=== PATIENT | female | born 1995 | race Caucasian/White ===

== ENCOUNTER 2021-06-24 17:40 | Emergency (ER) | payer BC ==
[2021-06-24] MEDS ORDERED: Sodium Chloride 0.9% 1000 ML 1,000 ML IV STA (18:32)
--- NOTE | 2021-06-24 18:42 | ERPHSYRPT ---
- History of Present Illness Time Seen by Provider: 06/24/21 17:55 Source: patient Exam Limitations: no limitations Patient Subjective Stated Complaint: pt here for dizziness for over 2 months, off and on,she states she feels unsteady on feet, she has testing done 2 weeks ago and was negative,denies any injury Triage Nursing Assessment: pt alert, resp easy, walked in, gait steady, skin w/d/p, face mask in place, no edema noted Physician History: Patient is a 26-year-old female presents to emergency department for evaluation of ongoing dizziness. Patient states she developed dizziness approximately 2 months ago. Patient was seen by nurse practitioner at an outside hospital. Patient had blood work and a Holter monitor placed to further assess for underlying causes of the dizziness. Per patient her blood work was unremarkable. The Holter monitor testing was unremarkable as well. Patient dizziness initially occurred just with sit to stand. She had orthostatics tested and states that they were negative. Patient is concerned because the dizziness is now worse. Patient is now experiencing dizziness when she walks. Patient was at work today and felt as though she was going to pass out. However there is no syncopal episode. Patient occasionally experiences posterior/occipital headaches. Patient experiences bouts of nausea. Patient was nauseous 2 days ago for the entire day. Patient also admits to intermittent sensations of left upper extremity tingling and weakness. Patient states she feels unsteady on her feet occasionally this is a new issue. Patient concerned that her symptoms are progressive. She is otherwise healthy. Patient is a non- smoker however she has a 10-year history of smoking. Patient has history of anxiety. Patient takes hydroxyzine as needed for anxiety. Patient is otherwise healthy. She voices no other complaints concerns at this time. Timing/Duration: other (Progressive dizziness for 2 months) Severity: moderate Modifying Factors: Improves With: other (Sit to stand transitions tend to trigger her dizziness.). Worsens With: nothing Associated Symptoms: nausea, other (Patient admits to near syncopal episodes), No cough, No chills Allergies/Adverse Reactions: No Known Drug Allergies Allergy (Unverified 06/24/21 17:57) Home Medications: hydrOXYzine HCL [Hydroxyzine HCl] 10 mg PO DAILY 06/24/21 [History] Hx Tetanus, Diphtheria Vaccination/Date Given: No Hx Influenza Vaccination/Date Given: No Hx Pneumococcal Vaccination/Date Given: No Immunizations Up to Date: Yes Travel Risk - International Travel Have you traveled outside of the country in past 3 weeks: No - Coronavirus Screening Are you exhibiting any of the following symptoms?: No Close contact with a COVID-19 positive Pt in past 14-21 Days: No - Vaccine Status Have you recieved a Covid-19 vaccination: No - Review of Systems Constitutional: No Symptoms, No Fever, No Chills Eyes: No Symptoms Ears, Nose, & Throat: No Symptoms Respiratory: No Symptoms, No Cough, No Dyspnea Cardiac: No Symptoms, No Chest Pain, No Edema, No Syncope Abdominal/Gastrointestinal: No Symptoms, No Abdominal Pain, No Nausea, No Vomiting, No Diarrhea Genitourinary Symptoms: No Symptoms, No Dysuria Musculoskeletal: No Symptoms, No Back Pain, No Neck Pain Skin: No Symptoms, No Rash Neurological: No Symptoms, No Dizziness, No Focal Weakness, No Sensory Changes Psychological: No Symptoms Endocrine: No Symptoms Hematologic/Lymphatic: No Symptoms Immunological/Allergic: No Symptoms All Other Systems: Reviewed and Negative - Past Medical History Pertinent Past Medical History: No - Past Surgical History Past Surgical History: Yes - Social History Smoking Status: Former smoker Exposure to second hand smoke: No Drug Use: none Patient Lives Alone: No - Female History Hx Last Menstrual Period: last week Hx Now: No - Nursing Vital Signs Nursing Vital Signs: Initial Vital Signs Temperature 98.6 F 06/24/21 17:49 Pulse Rate 76 06/24/21 17:49 Respiratory Rate 18 06/24/21 17:49 Blood Pressure 116/70 06/24/21 17:49 O2 Sat by Pulse Oximetry 100 06/24/21 17:49 Pain Scale Pain Intensity 0 - Physical Exam General Appearance: no apparent distress, alert Eye Exam: PERRL/EOMI, eyes nml inspection Ears, Nose, Throat Exam: normal ENT inspection, TMs normal, pharynx normal, moist mucous membranes Neck Exam: normal inspection, non-tender, supple, full range of motion Respiratory Exam: normal breath sounds, lungs clear, airway intact, No respiratory distress Cardiovascular Exam: regular rate/rhythm, normal heart sounds, normal peripheral pulses Gastrointestinal/Abdomen Exam: soft, normal bowel sounds, No tenderness, No mass Back Exam: normal inspection, normal range of motion, No CVA tenderness, No vertebral tenderness Extremity Exam: normal inspection, normal range of motion, pelvis stable Neurologic Exam: alert, oriented x 3, cooperative, art instructor II-XII nml as tested, normal mood/affect, nml cerebellar function, nml station & gait, sensation nml, No motor deficits Skin Exam: normal color, warm, dry, No rash Lymphatic Exam: No adenopathy SpO2 Interpretation: normal SpO2: 100 O2 Delivery: Room Air - Course Nursing assessment & vital signs reviewed: Yes EKG Interpreted by Me: RATE (78), Sinus Rhythm, NORMAL AXIS, NORMAL INTERVALS - CT Exams Head CT Interpretation: Tele-radiologist Report (No comps. Normal head) Ordered Tests: Active Orders 24 hr Category Date Time Status Diamond Powder Technician STAT Care 06/24/21 18:33 Active EKG-ER Only STAT Care 06/24/21 18:32 Active IV Insertion STAT Care 06/24/21 18:32 Active HEAD WITHOUT CONTRAST [CT] Stat Exams 06/24/21 18:33 Taken CBC W DIFF Stat Lab 06/24/21 18:45 Completed CMP Stat Lab 06/24/21 18:45 Completed ETHYL ALCOHOL Stat Lab 06/24/21 18:45 Completed HCG,QUALITATIVE URINE Stat Lab 06/24/21 18:42 Completed MAGNESIUM Stat Lab 06/24/21 18:45 Completed TROPONIN Q3H Lab 06/24/21 18:45 Completed TROPONIN Q3H Lab 06/24/21 21:45 Ordered TROPONIN Q3H Lab 06/25/21 00:45 Ordered TROPONIN Q3H Lab 06/25/21 03:45 Ordered TROPONIN Q3H Lab 06/25/21 06:45 Ordered TSH [TSH, 3RD Generation] Stat Lab 06/24/21 18:45 Completed Urine Triage Profile Stat Lab 06/24/21 18:42 Completed Medication Summary Discontinued Medications Generic Name Dose Route Start Last Admin Trade Name Freq PRN Reason Stop Dose Admin Sodium Chloride 1,000 mls @ 999 mls/hr 06/24/21 18:32 06/24/21 19:49 Sodium Chloride 0.9% 1000 Ml IV 06/24/21 19:32 Infused .Q1H1M STA Infusion Sodium Chloride Confirm 06/24/21 18:43 Sodium Chloride 0.9% 1000 Ml Administered 06/24/21 18:44 Dose 1,000 mls @ ud .ROUTE .[facility] Lab/Rad Data: Laboratory Result Diagrams 06/24/21 18:45 06/24/21 18:45 Laboratory Results 06/24/21 06/24/21 06/24/21 Range/Units 18:45 18:45 18:45 WBC (4.0-10.5) K/mm3 RBC (4.1-5.4) M/mm3 Hgb (12.0-16.0) gm/dl Hct (35-47) % MCV (78-100) fl MCH (26-32) pg MCHC (32-36) g/dl RDW (11.5-14.0) % Plt Count (150-450) K/mm3 MPV (7.5-11.0) fl Gran % (36.0-66.0) % Eos # (Auto) (0-0.5) Absolute Lymphs (auto) (1.0-4.6) Absolute Monos (auto) (0.0-1.3) Lymphocytes % (24.0-44.0) % Monocytes % (0.0-12.0) % Eosinophils % (0.00-5.0) % Basophils % (0.0-0.4) % Absolute Granulocytes (1.4-6.9) Basophils # (0-0.4) Sodium 139 (137-145) mmol/L Potassium 3.7 (3.5-5.1) mmol/L Chloride 104 (98-107) mmol/L Carbon Dioxide 27 (22-30) mmol/L Anion Gap 12.0 (5-15) MEQ/L BUN 11 (7-17) mg/dL Creatinine 0.60 (0.52-1.04) mg/dL Estimated GFR > 60.0 ML/MIN Glucose 79 (74-106) mg/dL Calcium 9.7 (8.4-10.2) mg/dL Magnesium 1.9 (1.6-2.3) mg/dL Total Bilirubin 0.40 (0.2-1.3) mg/dL AST 22 (14-36) U/L ALT 16 (0-35) U/L Alkaline Phosphatase 53 (38-126) U/L Troponin I < 0.012 (0.000-0.034) ng/mL Serum Total Protein 7.0 (6.3-8.2) g/dL Albumin 4.3 (3.5-5.0) g/dL TSH 3rd Generation 1.450 (0.47-4.68) mIU/L Urinalys Dipstick Clnc Urine Color (YELLOW) Urine Appearance (CLEAR) Urine pH (5-6) Ur Specific [place] (1.005-1.025) POC Urine Protein Conf (Negative) Urine Ketones (NEGATIVE) Urine Nitrite (NEGATIVE) Urine Bilirubin (NEGATIVE) Urine Urobilinogen (0-1) mg/dL Urine Leukocytes (NEGATIVE) Urine WBC (Auto) (0-5) /HPF Urine RBC (Auto) (0-2) /HPF U Epithel Cells (Auto) (FEW) /HPF Urine Bacteria (Auto) (NEGATIVE) /HPF Urine RBC (0-5) Ladarius/ul Urine Mucus (Auto) (NEGATIVE) /HPF Ur Culture Indicated? Urine Glucose (NEGATIVE) mg/dL Urine HCG, Qual (Negative) Urine Opiates Level (NEGATIVE) Ur Methadone (NEGATIVE) Urine Barbiturates (NEGATIVE) Ur Phencyclidine (PCP) (NEGATIVE) Urine Amphetamine (NEGATIVE) U Benzodiazepine Level (NEGATIVE) Urine Cocaine (NEGATIVE) Urine Marijuana (THC) (NEGATIVE) Ethyl Alcohol < 10 (0-10) mg/dL 06/24/21 06/24/21 06/24/21 Range/Units 18:45 18:42 18:42 WBC 10.7 H (4.0-10.5) K/mm3 RBC 4.40 (4.1-5.4) M/mm3 Hgb 13.2 (12.0-16.0) gm/dl Hct 39.3 (35-47) % MCV 89.3 (78-100) fl MCH 30.0 (26-32) pg MCHC 33.6 (32-36) g/dl RDW 12.9 (11.5-14.0) % Plt Count 332 (150-450) K/mm3 MPV 9.4 (7.5-11.0) fl Gran % 75.4 H (36.0-66.0) % Eos # (Auto) 0.14 (0-0.5) Absolute Lymphs (auto) 1.91 (1.0-4.6) Absolute Monos (auto) 0.56 (0.0-1.3) Lymphocytes % 17.9 L (24.0-44.0) % Monocytes % 5.2 (0.0-12.0) % Eosinophils % 1.3 (0.00-5.0) % Basophils % 0.2 (0.0-0.4) % Absolute Granulocytes 8.05 H (1.4-6.9) Basophils # 0.02 (0-0.4) Sodium (137-145) mmol/L Potassium (3.5-5.1) mmol/L Chloride (98-107) mmol/L Carbon Dioxide (22-30) mmol/L Anion Gap (5-15) MEQ/L BUN (7-17) mg/dL Creatinine (0.52-1.04) mg/dL Estimated GFR ML/MIN Glucose (74-106) mg/dL Calcium (8.4-10.2) mg/dL Magnesium (1.6-2.3) mg/dL Total Bilirubin (0.2-1.3) mg/dL AST (14-36) U/L ALT (0-35) U/L Alkaline Phosphatase (38-126) U/L Troponin I (0.000-0.034) ng/mL Serum Total Protein (6.3-8.2) g/dL Albumin (3.5-5.0) g/dL TSH 3rd Generation (0.47-4.68) mIU/L Urinalys Dipstick Clnc Urine Color (YELLOW) Urine Appearance (CLEAR) Urine pH (5-6) Ur Specific [place] (1.005-1.025) POC Urine Protein Conf (Negative) Urine Ketones (NEGATIVE) Urine Nitrite (NEGATIVE) Urine Bilirubin (NEGATIVE) Urine Urobilinogen (0-1) mg/dL Urine Leukocytes (NEGATIVE) Urine WBC (Auto) (0-5) /HPF Urine RBC (Auto) (0-2) /HPF U Epithel Cells (Auto) (FEW) /HPF Urine Bacteria (Auto) (NEGATIVE) /HPF Urine RBC (0-5) Ladarius/ul Urine Mucus (Auto) (NEGATIVE) /HPF Ur Culture Indicated? Urine Glucose (NEGATIVE) mg/dL Urine HCG, Qual NEGATIVE (Negative) Urine Opiates Level NEGATIVE (NEGATIVE) Ur Methadone NEGATIVE (NEGATIVE) Urine Barbiturates NEGATIVE (NEGATIVE) Ur Phencyclidine (PCP) NEGATIVE (NEGATIVE) Urine Amphetamine NEGATIVE (NEGATIVE) U Benzodiazepine Level NEGATIVE (NEGATIVE) Urine Cocaine NEGATIVE (NEGATIVE) Urine Marijuana (THC) NEGATIVE (NEGATIVE) Ethyl Alcohol (0-10) mg/dL 06/24/21 Range/Units 18:33 WBC (4.0-10.5) K/mm3 RBC (4.1-5.4) M/mm3 Hgb (12.0-16.0) gm/dl Hct (35-47) % MCV (78-100) fl MCH (26-32) pg MCHC (32-36) g/dl RDW (11.5-14.0) % Plt Count (150-450) K/mm3 MPV (7.5-11.0) fl Gran % (36.0-66.0) % Eos # (Auto) (0-0.5) Absolute Lymphs (auto) (1.0-4.6) Absolute Monos (auto) (0.0-1.3) Lymphocytes % (24.0-44.0) % Monocytes % (0.0-12.0) % Eosinophils % (0.00-5.0) % Basophils % (0.0-0.4) % Absolute Granulocytes (1.4-6.9) Basophils # (0-0.4) Sodium (137-145) mmol/L Potassium (3.5-5.1) mmol/L Chloride (98-107) mmol/L Carbon Dioxide (22-30) mmol/L Anion Gap (5-15) MEQ/L BUN (7-17) mg/dL Creatinine (0.52-1.04) mg/dL Estimated GFR ML/MIN Glucose (74-106) mg/dL Calcium (8.4-10.2) mg/dL Magnesium (1.6-2.3) mg/dL Total Bilirubin (0.2-1.3) mg/dL AST (14-36) U/L ALT (0-35) U/L Alkaline Phosphatase (38-126) U/L Troponin I (0.000-0.034) ng/mL Serum Total Protein (6.3-8.2) g/dL Albumin (3.5-5.0) g/dL TSH 3rd Generation (0.47-4.68) mIU/L Urinalys Dipstick Clnc MAIN LAB Urine Color YELLOW (YELLOW) Urine Appearance CLEAR (CLEAR) Urine pH 5.5 (5-6) Ur Specific [place] 1.025 (1.005-1.025) POC Urine Protein Conf NEGATIVE (Negative) Urine Ketones NEGATIVE (NEGATIVE) Urine Nitrite NEGATIVE (NEGATIVE) Urine Bilirubin NEGATIVE (NEGATIVE) Urine Urobilinogen 0.2 (0-1) mg/dL Urine Leukocytes NEGATIVE (NEGATIVE) Urine WBC (Auto) NONE (0-5) /HPF Urine RBC (Auto) NONE (0-2) /HPF U Epithel Cells (Auto) FEW (FEW) /HPF Urine Bacteria (Auto) NONE (NEGATIVE) /HPF Urine RBC NEGATIVE (0-5) Lad[place]/ul Urine Mucus (Auto) SLIGHT (NEGATIVE) /HPF Ur Culture Indicated? NO Urine Glucose NEGATIVE (NEGATIVE) mg/dL Urine HCG, Qual (Negative) Urine Opiates Level (NEGATIVE) Ur Methadone (NEGATIVE) Urine Barbiturates (NEGATIVE) Ur Phencyclidine (PCP) (NEGATIVE) Urine Amphetamine (NEGATIVE) U Benzodiazepine Level (NEGATIVE) Urine Cocaine (NEGATIVE) Urine Marijuana (THC) (NEGATIVE) Ethyl Alcohol (0-10) mg/dL - Progress Progress: improved Progress Note: Due to the progressive nature of patient's symptoms worsening dizziness and today with a near syncopal episode telemetry neuro consult was obtained. Prelim inary work-up from our emergency department essentially nonremarkable. Neurologist recommends admission for MRI of the brain with and without contrast as well as MRA of the head. Neurologist also recommends a JOSE with bubble study and a tilt table orthostatic test. Patient was advised of the recommendations and declined. Patient has a child at home that requires her attention. Patient will leave AGAINST MEDICAL ADVICE. Patient states she will obtain the recommended work-up as an outpatient. Patient is of sound mind. Patient is appropriate to make informed and independent medical decisions. Patient understands that leaving AGAINST MEDICAL ADVICE can result in delayed diagnosis, increased risk of morbidity, mortality, short and long-term disability including . In spite of these risks, patient has decided to leave AGAINST MEDICAL ADVICE. Patient understands that he/she may return to our ED at any point if he or she reconsiders. Patient agrees to follow-up with his or her primary care doctor within 48 hours for reevaluation. Patient voices no other complaints or concerns at this time. We will release patient AGAINST MEDICAL ADVICE per their request. 06/24/21 21:34 Portions of this note were created with voice recognition technology. There may be grammatical, spelling, punctuation or sound alike errors Counseled pt/family regarding: lab results, diagnosis, need for follow-up, rad results - Departure Departure Disposition: DAVID Clinical Impression: Dizziness, Near syncope, Paresthesia Condition: Stable Critical Care Time: No Referrals: GIRISH ACKERMAN, CRYSTALLIZER OPERATOR [Primary Care Provider] - Follow up/PCP as directed Additional Instructions: Discharge/Care Plan MANDO HUI was seen on 06/24/21 in the Emergency Room. The patient was counseled regarding Diagnosis,Lab results, Imaging studies, need for follow up and when to return to the Emergency Room. Prescriptions given: Discharge Note I have spoken with the patient and/or caregivers. I have explained the patient's condition, diagnosis and treatment plan based on the information available to me at this time. I have answered the patient's and/or caregiver's questions and addressed any concerns. The patient and/or caregivers have as good understanding of the patient's diagnosis, condition and treatment plan as can be expected at this point. The vital signs have been stable. The patient's condition is stable and appropriate for discharge from the emergency department. The patient will pursue further outpatient evaluation with the primary care physician or other designated or consulting physician as outlined in the discharge instructions. The patient and/or caregivers are agreeable to this plan of care and follow-up instructions have been explained in detail. The patient and/or caregivers have received these instruction. The patient/and or caregivers are aware that any significant change in condition or worsening of symptoms should prompt an immediate return to this or the closest emergency department or call 911.
[2021-06-24] MEDS ORDERED: Sodium Chloride 0.9% 1000 ML 1,000 ML ONE (18:43)
[2021-06-24 18:44] LABS: Appearance CLEAR (CLEAR); Bilirubin NEGATIVE (NEGATIVE); Glucose NEGATIVE (NEGATIVE); Ketones NEGATIVE (NEGATIVE); Specific Gravity 1.025 (1.005-1.025)
[2021-06-24 18:45] LABS: Dipstick done @ ? MAIN LAB; Nitrite NEGATIVE (NEGATIVE); Ph 5.5 (5-6); Protein,Urine Dip NEGATIVE (Negative); RBC NEGATIVE Ery/ul (0-5); Urobilinogen 0.2 mg/dL (0-1)
[2021-06-24 18:47] LABS: Epithelial Cells FEW /HPF (FEW); Mucus SLIGHT /HPF (NEGATIVE)
[2021-06-24 18:54] LABS: Absolute Neutrophil Ct (ANC) 8.05 (1.4-6.9); Basophil (Absolute #) 0.02 (0-0.4); Eosinophil % 1.3 % (0.00-5.0); Eosinophil (Absolute #) 0.14 (0-0.5); Hematocrit 39.3 % (35-47); Hemoglobin 13.2 gm/dl (12.0-16.0); Lymphocyte (Absolute #) 1.91 (1.0-4.6); Lymphocytes % 17.9 % (24.0-44.0); Mean Cell Volume 89.3 fl (78-100); Mean Corpuscular Hgb Concent. 33.6 g/dl (32-36); Mean Platelet Volume 9.4 fl (7.5-11.0); Monocyte (Absolute #) 0.56 (0.0-1.3); Monocytes % 5.2 % (0.0-12.0); Neutrophil % 75.4 % (36.0-66.0); Platelet Count 332 K/mm3 (150-450); Red Cell Distribution Width 12.9 % (11.5-14.0); White Blood Count 10.7 K/mm3 (4.0-10.5)
[2021-06-24 19:06] LABS: Amphetamine,Urine NEGATIVE (NEGATIVE); Barbiturate,Urine NEGATIVE (NEGATIVE); Benzodiazepine,Urine NEGATIVE (NEGATIVE); Cocaine,Urine NEGATIVE (NEGATIVE); Methadone,Urine NEGATIVE (NEGATIVE); Opiate,Urine NEGATIVE (NEGATIVE); PCP,Urine NEGATIVE (NEGATIVE); THC,Urine NEGATIVE (NEGATIVE)
[2021-06-24 19:13] LABS: ALBUMIN 4.3 g/dL (3.5-5.0); ALKALINE PHOSPHATASE 53 U/L (38-126); BLOOD UREA NITROGEN 11 mg/dL (7-17); CHLORIDE 104 mmol/L (98-107); Calcium 9.7 mg/dL (8.4-10.2); Carbon Dioxide 27 mmol/L (22-30); EST GLOMERULAR FILTRATION RATE > 60.0 ML/MIN; ETHYL ALCOHOL < 10 mg/dL (0-10); Glucose 79 mg/dL (74-106); MAGNESIUM 1.9 mg/dL (1.6-2.3); Potassium 3.7 mmol/L (3.5-5.1); SGOT/AST 22 U/L (14-36); SGPT/ALT 16 U/L (0-35); SODIUM 139 mmol/L (137-145)
[2021-06-24 21:13] VITALS: BP 104/74; PULSE 90
[2021-06-24 21:36] VITALS: O2SAT 100
--- NOTE | 2021-06-25 08:44 | XRAY ---
Indication: Headache and dizziness. No known injury. Mass. Multiple contiguous axial images obtained through the head without contrast. Comparison: None Normal appearing brain parenchyma, ventricles, and bony calvarium. Visualized paranasal sinuses and mastoid air cells are clear. Impression: Normal CT head without contrast exam.
== END 2021-06-24 21:49 | disposition left against medical advice (07) ==
LOC: ED 17:40
DX: R42 Dizziness and giddiness (principal); R55 Syncope and collapse; R20.2 Paresthesia of skin; R11.0 Nausea; R51.9 Headache, unspecified; Z79.899 Other long term (current) drug therapy
CPT/HCPCS: 36000; 36415; 70450; 80053; 80307; 81015; 83735; 84443; 84484; 84703; 85025; 93005; 93041; 99284; Q3014; G0480

== ENCOUNTER 2022-09-12 11:53 | Emergency (ER) | payer BC ==
--- NOTE | 2022-09-12 11:55 | ERPHSYRPT ---
- History of Present Illness Time Seen by Provider: 09/12/22 11:55 Source: patient Exam Limitations: no limitations Physician History: This is a 27-year-old white female who has no known drug allergies and has had sore throat and ulcerations on her tongue for the last 3 to 4 days. She is been seen in the [facility] urgent care facility. She was given a prescription of amoxicillin on 1 occasion and on another visit she was given a prescription for chlorhexidine mouth wash. Neither of these treatments have improved her symptoms. She was also told that she needs to follow-up with a dentist because of dental pain she is experiencing. She is planning on contacting her dentist on 09/13/2022. Patient has had negative COVID, influenza A and B, RSV swabs as well as negative group A strep swab/culture. Patient has not had a cough. She does not have any abdominal pain. She has had no nausea vomiting or diarrhea. She also has noticed swollen lymph nodes in her neck. She presents with stable vital signs but with a fever of 100.1 F today Timing/Duration: day(s) (3 to 4 days) Cough Quality/Degree: no cough Associated Symptoms: fever, sore throat, No chest pain/soreness, No cough, No nasal congestion, No sinus infection Allergies/Adverse Reactions: No Known Drug Allergies Allergy (Verified 09/12/22 11:58) Home Medications: Amoxicillin 500 mg PO TID 09/12/22 [History] Chlorhexidine Gluconate [HIBICLENS 4% Scrub] 118 ml TP DAILY 09/12/22 [History] Hx Tetanus, Diphtheria Vaccination/Date Given: No Hx Influenza Vaccination/Date Given: No Hx Pneumococcal Vaccination/Date Given: No Travel Risk - International Travel Have you traveled outside of the country in past 3 weeks: No - Coronavirus Screening Are you exhibiting any of the following symptoms?: Yes Symptoms: Fever Close contact with a COVID-19 positive Pt in past 14-21 Days: No - Vaccine Status Have you recieved a Covid-19 vaccination: No - Review of Systems Constitutional: Fever Eyes: No Symptoms Ears, Nose, & Throat: No Symptoms, Throat Pain Respiratory: No Symptoms Cardiac: No Symptoms Abdominal/Gastrointestinal: No Symptoms Genitourinary Symptoms: No Symptoms Musculoskeletal: No Symptoms Skin: No Symptoms Neurological: No Symptoms Psychological: No Symptoms Endocrine: No Symptoms Hematologic/Lymphatic: No Symptoms Immunological/Allergic: No Symptoms All Other Systems: Reviewed and Negative - Past Medical History Pertinent Past Medical History: No - Past Surgical History Past Surgical History: Yes - Social History Smoking Status: Former smoker Exposure to second hand smoke: No Drug Use: none Patient Lives Alone: No - Nursing Vital Signs Nursing Vital Signs: Pain Scale Pain Intensity 7 - Physical Exam General Appearance: no apparent distress, alert, anxiety Eye Exam: PERRL/EOMI, eyes nml inspection Ears, Nose, Throat Exam: moist mucous membranes, pharyngeal erythema (Mild) Neck Exam: normal inspection, non-tender, supple, full range of motion Respiratory Exam: No chest tenderness, No respiratory distress, No wheezing, No stridor Gastrointestinal/Abdomen Exam: No tenderness Pelvic Exam: not done Rectal Exam: not done Back Exam: normal inspection, normal range of motion, No CVA tenderness, No vertebral tenderness Extremity Exam: normal inspection, normal range of motion, pelvis stable Neurologic Exam: alert, oriented x 3, cooperative, fountain server II-XII nml as tested, normal mood/affect, nml cerebellar function, nml station & gait, sensation nml Skin Exam: normal color, warm, dry Lymphatic Exam: adenopathy (Bilateral, anterior, superior cervical lymph node tenderness and mild swelling) SpO2 Interpretation: normal O2 Delivery: Room Air - Progress Progress: unchanged Air Movement: good Progress Note: 09/12/22 12:13 Patient's medical issue is 1 of low complexity. The level of complexity and the work-up performed is based on review of the patient's past medical history, review of the patient's medication list, review of the patient's drug allergy list, history present illness and physical findings on examination. Patient has already had appropriate work-up in the last 3 days from 2 visits at [facility]. I offered the patient repeat group A strep and viral swabs. She declines at this time. Patient likely has her symptoms secondary to viral illness. I will have her stop her amoxicillin and stop the chlorhexidine solution. Patient is to follow-up with a dentist to deal with her dental issues. We will change management director to include Karol's Magic mouthwash and nighttime use of Lortab elixir. Blood Culture(s) Obtained: No Antibiotics given: No Counseled pt/family regarding: diagnosis, need for follow-up Medical Desision Making - Diagnostic Testing Diagnostic test were ordered, analyzed, and reviewed by me: No - Risk of complications The pt has a mod risk of morbidity or mortality based on: Need for prescription drug management - Departure Departure Disposition: Home Clinical Impression: Pharyngitis, Fever Condition: Stable Critical Care Time: No Referrals: GIRIHS ACKERMAN NP [Primary Care Provider] - Follow up/PCP as directed Additional Instructions: Take the medication as prescribed. Stop your amoxicillin and chlorhexidine. May add Tylenol and ibuprofen for fever and pain control. Follow-up with your primary care provider tomorrow, 09/13/2022, as well as your dentist for further evaluation and management. Prescriptions: Hydrocodone/Acetaminophen [Hydrocodone-Acetamn 7.5-325/15] 10 ml PO Q12H PRN PRN #60 ml MDD 20 ml PRN Reason: Cough Nystatin/TCN/Hc/Diphenhydram [Karol's Magic Mouthwash] 10 ml PO Q8H #180 ml
[2022-09-12] MEDS ORDERED: TYLENOL 325 MG PO STA (12:08)
[2022-09-12 12:09] VITALS: BP 123/81; PULSE 115; O2SAT 99
[2022-09-12] MEDS ORDERED: TYLENOL 325 MG ONE (12:22)
== END 2022-09-12 12:36 | disposition home or self-care (01) ==
LOC: ED 11:53
DX: J02.9 Acute pharyngitis, unspecified (principal); R50.9 Fever, unspecified; K13.79 Other lesions of oral mucosa; Z79.891 Long term (current) use of opiate analgesic; Z28.310 Unvaccinated for COVID-19
CPT/HCPCS: 99281; A9270-GY